=== PATIENT | male | born 1945 | race Caucasian/White ===

== ENCOUNTER 2017-01-08 08:57 | Inpatient (IN) | payer MEDICARE ==
[~2017-01-08] VITALS: Ht 167.6 cm; Wt 94.2 kg
[2017-01-08] MEDS ORDERED: IPRAAER INH (14:19)
[2017-01-08] MEDS ORDERED: ALPR1TAB3 PO (14:19)
[2017-01-08] MEDS ORDERED: LATA0.002 EACH EYE (14:19)
[2017-01-08] MEDS ORDERED: ACYC400T PO (14:19)
[2017-01-08] MEDS ORDERED: HYDR1OIN25 TOPICAL (14:19)
[2017-01-08] MEDS ORDERED: OPTI0.5D EACH EYE (14:19)
[2017-01-08] MEDS ORDERED: MELO-1 PO (14:19)
[2017-01-08] MEDS ORDERED: LISI40TA PO (14:19)
[2017-01-08] MEDS ORDERED: HYDR1OIN25 (14:19)
[2017-01-08] MEDS ORDERED: PRAZ5CAP PO (14:19)
[2017-01-08] MEDS ORDERED: IPRASOL INH (14:19)
[2017-01-08] MEDS ORDERED: HYDR12.57 PO (14:19)
[2017-01-08] MEDS ORDERED: SYMB80AE INH (14:19)
[2017-01-08] MEDS ORDERED: OXYC1CAP PO (14:19)
[2017-01-08] MEDS ORDERED: SPIRCAP INH (14:19)
[2017-01-18 07:48] VITALS: BP 161/71; PULSE 92; RESP 18; TEMP 99.5; O2SAT 94
[2017-01-18] MEDS ORDERED: LACTATED RINGER'S 1000 ML IV PRN (08:00)
[2017-01-18] MEDS ORDERED: POVIDONE IODINE 5% (ANTISEPSIS KIT) 4 APPLICATIONS EACH NARE PRN (08:00)
[2017-01-18] MEDS ORDERED: CHLORHEXIDINE GLUCONATE 4% SOLN 120 ML BTL TOPICAL SCH (08:00)
[2017-01-18] MEDS ORDERED: SODIUM CHLORID 0.9% 500 ML IV PRN (08:00)
[2017-01-18] MEDS ORDERED: CHLORHEXIDINE GLUCONATE 2 % 1 PACK (2 CLOTHS) TOPICAL PRN (08:00)
[2017-01-18] MEDS ORDERED: ceFAZolin 2 GM PREMIX 50 ML IV SCH (08:00)
[2017-01-18] MEDS ORDERED: INSULIN HUMAN REGULAR 1,000 UNITS/10 ML VIAL SQ PRN (08:00)
[2017-01-18] MEDS ORDERED: METOPROLOL TARTRATE 25 MG TAB PO PRN (08:00)
[2017-01-18] MEDS ORDERED: MAGNESIUM HYDROXIDE SUSP 30 ML CUP PO PRN (08:45)
[2017-01-18] MEDS ORDERED: ACETAMINOPHEN/HYDROcodone 325 MG/7.5 MG TAB PO PRN (08:45)
[2017-01-18] MEDS ORDERED: SODIUM CHLORIDE 0.9% FLUSH 5 ML FLUSH IVF PRN (08:45)
[2017-01-18] MEDS ORDERED: ONDANSETRON HCL 4 MG/2 ML VIAL IVP PRN (08:45)
[2017-01-18] MEDS ORDERED: Post-op Orders (for Pharmacy) MISC XX ONE (08:45)
[2017-01-18] MEDS ORDERED: BISACODYL 10 MG SUPP RECTAL PRN (08:45)
[2017-01-18] MEDS ORDERED: MORPHINE SULFATE 8 MG/ML INJ IV PUSH PRN (08:45)
[2017-01-18] MEDS ORDERED: TRANEXAMIC ACID INJ 0 MG in SODIUM CHLORIDE 0.9% INJ 100 ML IV SCH (08:45)
[2017-01-18] MEDS ORDERED: NON-FORMULARY DRUG (Ipratropium-Albuterol Inh (Combivent Respimat Inh) 1 PUFF) INH PRN (09:00)
[2017-01-18] MEDS ORDERED: GENTAMICIN SULFATE 80 MG/2 ML VIAL IRRIGATION ONE (09:50)
[2017-01-18] MEDS ORDERED: TRANEXAMIC ACID IV SCH ×2 (10:00→13:00)
[2017-01-18] MEDS ORDERED: EXPAREL PERI-ARTICULAR INJECTION (TOTAL VOL. 60 ML) P-ARTICULR SCH ×2 (10:00)
[2017-01-18] MEDS ORDERED: KETOROLAC TROMETHAMINE 30 MG/ML (IVP) VIAL IVP SCH (10:00)
[2017-01-18] MEDS ORDERED: SODIUM CHLORIDE 0.9% IV SCH ×2 (10:00→13:00)
[2017-01-18] MEDS ORDERED: CARBOXYMETHYLCELLULOSE EACH EYE PRN (11:00)
[2017-01-18] MEDS ORDERED: [UNRECOGNIZED DRUG - OTHER] EACH EYE PRN (11:00)
[2017-01-18] MEDS ORDERED: DO NOT ADM ANY ANTICOAGULANT DRUGS PRN (12:01)
[2017-01-18] MEDS ORDERED: *morphine SULFATE 8 MG/ML PERIprocedure ONLY ONE ×3 (12:23→12:38)
[2017-01-18] MEDS ORDERED: *RESP: ALBUTEROL 2.5 MG/3 ML NEB (PRN) PERIprocedural Use ONLY NEB ONE (12:24)
[2017-01-18] MEDS ORDERED: *MEPERIDINE 25 MG INJ VIAL PERIprocedural Use ONLY ONE (12:42)
[2017-01-18] MEDS ORDERED: *HYDROmorphone PF 1 MG VIAL PERIprocedural Use ONLY ONE ×2 (12:55→13:31)
[2017-01-18] MEDS: KETOROLAC TROMETHAMINE 30 MG/ML (IVP) VIAL IVP SCH ×2 (13:00→19:13)
[2017-01-18] MEDS: ALPRAZolam 1 MG TAB PO PRN (13:23)
--- NOTE | 2017-01-18 13:24 | RADRPT ---
EXAM DATE/TIME: 01/18/2017 12:35 [place] COMPARISON: No previous studies available for comparison. INDICATIONS : Post op right hip. MEDICAL HISTORY : None. SURGICAL HISTORY : None. ENCOUNTER: Initial ACUITY: 1 day PAIN SCORE: 10/10 LOCATION: Right hip. FINDINGS: A two view examination of the right hip was performed. Right hip arthroplasty. Postsurgical changes. No hardware loosening or fracture. A linear 2.6 cm radiopaque density in the soft tissues of the uppe r thigh of uncertain etiology. The acetabulum is grossly intact. CONCLUSION: 1. Right hip prosthesis. 2. Linear 2.6 cm radiopaque density in the upper soft tissues of the upper thigh of uncertain etiolog y. Constantino Paredes MD on January 18, 2017 at 13:20 Board Certified Radiologist. This report was verified electronically.
[2017-01-18] MEDS ORDERED: ALPRAZolam 0.5 MG TAB ONE (13:26)
[2017-01-18] MEDS ORDERED: PROPOFOL 200 MG/20 ML AMP IV ONE (15:17)
[2017-01-18] MEDS ORDERED: PHENYLEPH/NS 1000 MCG/10 ML SYR IV ONE (15:17)
[2017-01-18] MEDS ORDERED: LACTATED RINGER'S 1000 ML INJ 2,000 ML IV ONE (15:18)
[2017-01-18 15:20] VITALS: BP 131/71; PULSE 85; RESP 17; TEMP 98.4; O2SAT 93
--- NOTE | 2017-01-18 15:52 | PD.CONS ---
[facility] Service [place] [facility] Consult Requested By Dr. Davis Reason for Consult Medical management Primary Care Physician Oswaldo Garcia MD Diagnoses: (1) Osteonecrosis of right hip (2) Hypertension (3) COPD (chronic obstructive pulmonary disease) History of Present Illness The patient is a 71-year-old male seen in consultation for medical management following right total hip arthroplasty. He has history of COPD and hypertension. He is having pain in the right hip currently. Denies dyspnea, chest pain. Review of Systems Constitutional: DENIES: Fever, Chills, Night Sweats Eyes: DENIES: Blurred vision, Vision loss Ears, nose, mouth, throat: DENIES: Hearing loss Respiratory: DENIES: Cough, Wheezing, Sputum production, Shortness of breath Cardiovascular: DENIES: Chest pain, Palpitations, Dyspnea on Exertion, Lower Extremity Edema Gastrointestinal: DENIES: Abdominal pain, Constipation, Diarrhea, Nausea, Vomiting Genitourinary: DENIES: Urinary frequency, Urinary incontinence, Urgency, Hematuria, Dysuria, Nocturia Musculoskeletal: COMPLAINS OF: Joint pain, DENIES: Muscle aches Integumentary: DENIES: Pruritus, Rash Hematologic/lymphatic: DENIES: Bruising Neurologic: DENIES: Headache Past Family Social History Allergies: Coded Allergies: Codeine (Verified Allergy, Intermediate, ITCHING, 01/08/17) Past Medical History COPD Hypertension Osteoarthritis History of prostate cancer Past Surgical History Prostatectomy 2001 Reported Medications Alprazolam 1 mg 3 times a day as needed Amlodipine 10 mg daily Prazosin 2.5 mg daily at bedtime DuoNeb 3-4 times daily Latanoprost eyedrops Lisinopril 40 mg daily Symbicort 80/4.5 Meloxicam 15 mg daily Oxycodone 5 mg every 4 hours as needed Acyclovir 400 mg twice a day Combivent inhaler 4 times a day as needed Family History Father had lung cancer Diabetes Hypertension Mother had heart disease Sibling with non-Hodgkin's lymphoma Social History Patient smoked for a few years when he joined the . Quit many years ago. Denies alcohol use. No illicit drug use. Physical Exam Vital Signs Vital Signs Date Time Temp Pulse Resp B/P Pulse Ox O2 Delivery O2 Flow Rate FiO2 01/18/17 07:48 99.5 92 18 161/71 94 Physical Exam GENERAL: Well-nourished, well-developed male in no acute distress. Appears somewhat uncomfortable at times. HEENT: Normocephalic, atraumatic. Pupils equal, round and reactive. Extraocular movements intact. No scleral icterus. No injection or drainage. Oropharynx is clear. Mucous membranes are moist. CARDIOVASCULAR: Regular rate and rhythm without murmurs, gallops, or rubs. RESPIRATORY: Clear to auscultation. No wheezes, rales, or rhonchi. Breathing is non-labored. GASTROINTESTINAL: Abdomen soft, non-tender, nondistended. EXTREMITIES: No lower extremity edema. No calf tenderness. Right leg in an immobilizer splint. SCDs. PSYCH: Alert and oriented x 3. Laboratory Laboratory Tests Test 01/18/17 07:44 Blood Type O POSITIVE Antibody Screen NEGATIVE Blood Bank Comment Imaging Last Impressions Hip X-Ray 01/18/17 0000 Signed Impressions: Service Date/Time: Wednesday, January 18, 2017 12:35 - CONCLUSION: 1. Right hip prosthesis. 2. Linear 2.6 cm radiopaque density in the upper soft tissues of the upper thigh of uncertain etiology. Constantino Paredes MD Assessment and Plan Assessment and Plan 1. Osteoarthritis, right hip: Status post right total hip arthroplasty, POD #0. Management per orthopedic surgery. Continue pain control, bowel regimen, PT. 2. Hypertension: Continue HCTZ, lisinopril, prazosin. 3. COPD: Not in exacerbation. Continue Symbicort, Spiriva. DuoNeb scheduled. Albuterol nebulizers as needed. Supplemental oxygen. 4. DVT prophylaxis: Aspirin. Umer Rodriguez MD January 18, 2017 15:52
[2017-01-18] MEDS ORDERED: LORazepam 1 MG TAB PO PRN (16:30)
[2017-01-18] MEDS ORDERED: LORazepam 2 MG/ML VIAL IV PUSH PRN ×4 (16:30)
[2017-01-18] MEDS ORDERED: LORazepam 2 MG TAB PO PRN (16:30)
[2017-01-18] MEDS ORDERED: FLUMAZENIL 0.5 MG/5 ML VIAL IV PUSH PRN (16:30)
[2017-01-18] MEDS: ACETAMINOPHEN/HYDROcodone 325 MG/7.5 MG TAB PO PRN ×2 (17:55→22:09)
[2017-01-18] MEDS: RESP: ALBUTEROL 2.5 MG/3 ML NEB (PRN) INH (18:28)
[2017-01-18 18:29] VITALS: O2SAT 94
[2017-01-18 20:30] VITALS: BP 136/73; PULSE 96; RESP 18; TEMP 99.4; O2SAT 98
[2017-01-18] MEDS: SODIUM CHLORIDE 0.9% FLUSH 5 ML FLUSH IVF SCH (20:56)
[2017-01-18] MEDS: BUDESONIDE-FORMOTEROL 80/4.5 MCG INHALER INH SCH (20:57)
[2017-01-18] MEDS: LATANOPROST 0.005% OPHT SOLN 2.5 ML BTL EACH EYE SCH (20:57)
[2017-01-18] MEDS: ACYCLOVIR 200 MG CAP PO SCH (20:58)
[2017-01-18] MEDS ORDERED: PRAZOSIN HCL 5 MG CAP PO SCH (21:00)
[2017-01-18] MEDS ORDERED: ZOLPIDEM TARTRATE 5 MG TAB PO PRN (21:00)
[2017-01-18] MEDS: HYDROCORTISONE 1% OINT 30 GM TUBE TOPICAL SCH (21:01)
[2017-01-18] MEDS: LACTATED RINGER'S 1000 ML INJ 1,000 ML IV SCH (21:13)
[2017-01-19] VITALS (9 sets, daily range): BP systolic 122–142; BP diastolic 58–74; PULSE 81–97; RESP 17–19; TEMP 97.8–99.9; O2SAT 91–100
[2017-01-19] MEDS: KETOROLAC TROMETHAMINE 30 MG/ML (IVP) VIAL IVP SCH ×4 (00:24→18:33)
[2017-01-19] MEDS ORDERED: oxyCODONE/ACETAMINOPHEN 5 MG/325 MG TAB PO PRN (01:15)
[2017-01-19] MEDS: oxyCODONE/ACETAMINOPHEN 5 MG/325 MG TAB PO PRN ×5 (02:00→19:44)
[2017-01-19] MEDS: RESP: ALBUTEROL 2.5 MG/3 ML NEB (PRN) INH (06:12)
--- NOTE | 2017-01-19 06:43 | PD.ORT.PN ---
Subjective Post Op Day #: 1 Subjective Remarks He has had some pain when moved. He does not like the CKS. Distance Walked 2 feet. Objective Vitals Vital Signs Date Time Temp Pulse Resp B/P Pulse Ox O2 Delivery O2 Flow Rate FiO2 01/19/17 06:09 95 Nasal Cannula 3.00 01/19/17 04:43 97.8 83 17 125/69 99 01/19/17 00:35 99.9 89 18 122/58 100 01/18/17 20:30 99.4 96 18 136/73 98 01/18/17 18:29 94 Nasal Cannula 3.00 01/18/17 15:20 98.4 85 17 131/71 93 01/18/17 15:00 98.0 85 20 119/56 97 Nasal Cannula 2 01/18/17 14:30 84 20 112/54 98 Nasal Cannula 2 01/18/17 14:15 83 20 107/57 97 Nasal Cannula 2 01/18/17 14:00 81 20 151/69 99 Nasal Cannula 2 01/18/17 13:45 81 20 151/69 99 Nasal Cannula 2 01/18/17 13:30 80 20 155/68 99 Nasal Cannula 2 01/18/17 13:15 79 20 146/67 99 Nasal Cannula 2 01/18/17 13:00 79 20 157/67 99 Nasal Cannula 2 01/18/17 12:45 77 20 141/79 100 Nasal Cannula 2 01/18/17 12:30 76 24 129/81 100 Nasal Cannula 2 01/18/17 12:15 76 24 125/82 100 Nasal Cannula 2 01/18/17 12:01 97.3 69 24 117/81 99 Nasal Cannula 2 01/18/17 07:48 99.5 92 18 161/71 94 I/O 01/18/17 01/18/17 01/18/17 01/19/17 01/19/17 01/19/17 06:59 14:59 22:59 06:59 14:59 22:59 Intake Total 2300 ml 1814 ml Output Total 1400 ml 350 ml Balance 900 ml 1464 ml Intake Oral 720 ml IV Total 1094 ml Other 2300 ml Output Urine Total 1100 ml 350 ml Estimated Blood Loss 300 ml # Bowel Movements 0 Imaging Last 72 hours Impressions Hip X-Ray 01/18/17 0000 Signed Impressions: Service Date/Time: Wednesday, January 18, 2017 12:35 - CONCLUSION: 1. Right hip prosthesis. 2. Linear 2.6 cm radiopaque density in the upper soft tissues of the upper thigh of uncertain etiology. Constantino Paredes MD Objective Remarks He is resting comfortably, supine in bed . The neurovascular status is intact. The dressing is dry and intact. Assessment & Plan Ortho Post Op Day #: 1 Problem List: (1) Status post total hip replacement, right Plan: Continue postop care and PT. Assessment and Plan Condition: Good. Orthopaedically stable. DVT prophylaxis: TEDs, sequentials, ASA. Discharge plans: Home with [facility]. Has appointment. Mckenzie Davis MD (Charles) January 19, 2017 06:43
--- NOTE | 2017-01-19 06:59 | HHI.FF ---
Face to Face Verification Diagnosis: (1) Status post total hip replacement, right Physical Therapy Gait training Hip: Total hip, Protocol: Right, Posterior hip precautions, Progress to weight bearing Canvas Knee Splint: When in bed & 2 pillows btw thighs Right LE Weight Bearing: WB as tolerated Right LE Range of Motion: Active ROM Nursing Nursing: Dressing changes Dressing Changes: Daily dressing change, Coverderm/Primapore Additional Instructions Remove steristrips on postop day 14. I have seen patient Dg Bradley on 01/19/17. My clinical findings support the need for the requested home health care services because: Ltd mobility - disease progression Patient has SOB Limited ability to care for self High risk of falls I certify that my clinical findings support that this patient is homebound because: Post-op weakness Hx COPD- exertion dyspnea/weakness Unsteady gait/balance Unsafe to leave home unassisted Mckenzie Davis MD (Charles) January 19, 2017 06:59
[2017-01-19 07:19] LABS: HEMATOCRIT 33.9 % (39.0-51.0); REVIEW FLAG FINAL
[2017-01-19] MEDS: SODIUM CHLORIDE 0.9% FLUSH 5 ML FLUSH IVF SCH ×2 (09:00→19:43)
[2017-01-19] MEDS: LACTATED RINGER'S 1000 ML INJ 1,000 ML IV SCH ×2 (09:43→19:37)
[2017-01-19] MEDS: HYDROCHLOROTHIAZIDE 12.5 MG CAP PO SCH (10:07)
[2017-01-19] MEDS: BUDESONIDE-FORMOTEROL 80/4.5 MCG INHALER INH SCH ×2 (10:07→19:43)
[2017-01-19] MEDS: LISINOPRIL 20 MG TAB PO SCH (10:07)
[2017-01-19] MEDS: HYDROCORTISONE 1% OINT 30 GM TUBE TOPICAL SCH ×2 (10:08→19:44)
[2017-01-19] MEDS: ACYCLOVIR 200 MG CAP PO SCH ×2 (10:08→19:43)
[2017-01-19] MEDS: ASPIRIN EC 81 MG TABEC PO SCH ×2 (11:25→19:43)
[2017-01-19] MEDS: RESP: ALBUTEROL 2.5 MG/IPRATROPIUM 0.5 MG NEB (SCH) INH ×3 (13:33→19:45)
--- NOTE | 2017-01-19 13:53 | HHI.PR ---
Subjective Remarks Follow-up hypertension, COPD. Patient states that he feels much better today. He is still having pain in the right hip area. Denies chest pain or dyspnea. Objective Vitals Vital Signs Date Time Temp Pulse Resp B/P Pulse Ox O2 Delivery O2 Flow Rate FiO2 01/19/17 13:34 95 Nasal Cannula 3.00 01/19/17 08:00 98.4 93 18 122/67 97 01/19/17 06:09 95 Nasal Cannula 3.00 01/19/17 04:43 97.8 83 17 125/69 99 01/19/17 00:35 99.9 89 18 122/58 100 01/18/17 20:30 99.4 96 18 136/73 98 01/18/17 18:29 94 Nasal Cannula 3.00 01/18/17 15:20 98.4 85 17 131/71 93 01/18/17 15:00 98.0 85 20 119/56 97 Nasal Cannula 2 01/18/17 14:30 84 20 112/54 98 Nasal Cannula 2 01/18/17 14:15 83 20 107/57 97 Nasal Cannula 2 01/18/17 14:00 81 20 151/69 99 Nasal Cannula 2 I/O 01/18/17 01/18/17 01/18/17 01/19/17 01/19/17 01/19/17 07:00 15:00 23:00 07:00 15:00 23:00 Intake Total 3305 ml 809 ml 716 ml Output Total 1400 ml 350 ml 550 ml Balance 1905 ml 459 ml 166 ml Intake Oral 480 ml 240 ml 240 ml IV Total 525 ml 569 ml 476 ml Other 2300 ml Output Urine Total 1100 ml 350 ml 550 ml Estimated Blood Loss 300 ml # Bowel Movements 0 0 Result Diagram: 01/19/17 0654 Imaging Last Impressions Hip X-Ray 01/18/17 0000 Signed Impressions: Service Date/Time: Wednesday, January 18, 2017 12:35 - CONCLUSION: 1. Right hip prosthesis. 2. Linear 2.6 cm radiopaque density in the upper soft tissues of the upper thigh of uncertain etiology. Constantino Paredes MD Objective Remarks General: Elderly male in no acute distress. Heart: Regular rate and rhythm. No murmur. Lungs: Clear to auscultation bilaterally. No wheezes, rales, or rhonchi. Breathing is nonlabored. Abdomen: Soft, nontender, nondistended. Extremities: No lower extremity edema. Psych: Alert and oriented. Urinary Catheter: No Vascular Central Line Catheter: No A/P Problem List: (1) Osteonecrosis of right hip ICD Code: M87.9 Status: Acute (2) Hypertension ICD Code: I10 Status: Acute (3) COPD (chronic obstructive pulmonary disease) ICD Code: J44.9 Status: Acute Assessment and Plan 1. Osteoarthritis, right hip: Status post right total hip arthroplasty, POD #1. Management per orthopedic surgery. Continue pain control, bowel regimen, PT. 2. Hypertension: Continue HCTZ, lisinopril, prazosin. Blood pressure is well controlled. 3. COPD: Not in exacerbation. Continue Symbicort, Spiriva. DuoNeb scheduled. Albuterol nebulizers as needed. Supplemental oxygen. 4. DVT prophylaxis: Aspirin. Discharge Planning Current plan is for discharge home tomorrow with home health care. Patient may need SNF for rehabilitation depending on clinical improvement. Umer Rodriguez MD January 19, 2017 13:53
[2017-01-19] MEDS: ALPRAZolam 1 MG TAB PO PRN (15:09)
[2017-01-19] MEDS: DOCUSATE SODIUM 100 MG CAP PO SCH (19:43)
[2017-01-19] MEDS: LATANOPROST 0.005% OPHT SOLN 2.5 ML BTL EACH EYE SCH (19:44)
[2017-01-20] VITALS: BP 153/69; PULSE 98; RESP 19; TEMP 98.6; O2SAT 99
[2017-01-20] MEDS: oxyCODONE/ACETAMINOPHEN 5 MG/325 MG TAB PO PRN ×4 (00:05→13:14)
[2017-01-20] MEDS: KETOROLAC TROMETHAMINE 30 MG/ML (IVP) VIAL IVP SCH ×2 (00:05→03:19)
[2017-01-20 04:40] VITALS: BP 155/60; PULSE 104; RESP 19; TEMP 100.9; O2SAT 97
[2017-01-20 06:29] LABS: HEMATOCRIT 33.1 % (39.0-51.0); REVIEW FLAG FINAL
--- NOTE | 2017-01-20 06:45 | PD.ORT.PN ---
Subjective Post Op Day #: 2 Subjective Remarks He has very little pain. He has been OOB to the bathroom. He did well with PT and the class. Distance Walked 110 feet. Objective Vitals Vital Signs Date Time Temp Pulse Resp B/P Pulse Ox O2 Delivery O2 Flow Rate FiO2 01/20/17 04:40 100.9 104 19 155/60 97 01/20/17 00:00 98.6 98 19 153/69 99 01/19/17 20:30 97.9 97 19 134/64 94 01/19/17 19:47 91 Nasal Cannula 21 01/19/17 16:00 98.5 89 18 131/68 97 01/19/17 13:34 95 Nasal Cannula 3.00 01/19/17 12:00 98.4 81 18 142/74 99 I/O 01/19/17 01/19/17 01/19/17 01/20/17 01/20/17 01/20/17 07:00 15:00 23:00 07:00 15:00 23:00 Intake Total 716 ml 840 ml 240 ml Output Total 550 ml Balance 166 ml 840 ml 240 ml Intake Oral 240 ml 840 ml 240 ml IV Total 476 ml Output Urine Total 550 ml # Voids 6 2 # Bowel Movements 0 0 0 Result Diagram: 01/20/17 0622 Imaging Last 72 hours Impressions Hip X-Ray 01/18/17 0000 Signed Impressions: Service Date/Time: Wednesday, January 18, 2017 12:35 - CONCLUSION: 1. Right hip prosthesis. 2. Linear 2.6 cm radiopaque density in the upper soft tissues of the upper thigh of uncertain etiology. Constantino Paredes MD Objective Remarks He is resting comfortably, supine in bed . The neurovascular status is intact. The dressing is dry and intact. Assessment & Plan Ortho Post Op Day #: 2 Problem List: (1) Status post total hip replacement, right Plan: Continue postop care and PT. Assessment and Plan Condition: Good. Orthopaedically stable. DVT prophylaxis: TEDs, sequentials, ASA. Discharge plans: Home with [facility]. Has appointment. Rx: Percocet 5/325 Mckenzie Davis MD (Charles) January 20, 2017 06:45
--- NOTE | 2017-01-20 07:36 | MP ---
cc: Mckenzie VALE. DATE OF SURGERY 01/18/2017 PREOPERATIVE DIAGNOSIS Osteonecrosis right femoral head. POSTOPERATIVE DIAGNOSIS Osteonecrosis right femoral head. OPERATION PERFORMED Right total hip arthroplasty with Endy prosthesis. SURGEON Mckenzie Vale MD CHECK EMBOSSER Shahzad Black CSFA ANESTHESIA Spinal with supplemental local INDICATIONS AND FINDINGS This 71-year-old man has a three month history of spontaneous onset of right hip pain which has progressively worsened to the point that he can only walk short distances because of the pain. He has not responded to conservative measures including anti-inflammatory agents, analgesics, ambulatory aids, exercises and the like. Physical findings showed marked pain on motion, extremely antalgic gait, and tenderness about the hip. Imaging studies show on the x-ray some irregularity with a small step offs as seen on the lateral view. There did appear to be a small cystic area in the humeral head. The trabecular pattern in the femoral head was mottled. An MRI shows significant osteonecrosis with obvious fluid within an area in the subchondral portion of the femoral head. OPERATIVE FINDINGS Showed significant osteonecrosis of the femoral head with a split going from the fovea down to the edge of the articular surface with delamination going across the upper portion and going towards posterior. This would actually opened as the flap similar to the cover of a book. The entire femoral head was soft. The prosthesis used was a [place] prosthesis with the acetabular component being a Tritanium cluster shell size 52 mm with a Trident X3 polyethylene insert 0 degrees with 32 mm inner diameter. Three screws were used. The femoral component was an Accolade II size 5 x 132 degrees neck angle. The femoral head was a Biolox Delta head size 32 mm outer diameter with a -4 mm neck length. PROCEDURE The patient was brought to the operating room and a spinal anesthetic was administered. The procedure was carried out in the clean-air operating suite. He received prophylactic antibiotics in the form of Ancef 2 grams and also received tranexamic acid preoperatively according to the protocol. After his spinal anesthetic, he was placed in the lateral position on the [employer] lateral positioner with the right hip up and an axillary roll under the left shoulder. The hip was prepped with alcohol, Hibiclens and Chloraprep and draped in the usual manner with the hip draped free. An appropriate time-out procedure was carried out. Local anesthesia was administered in the incision site and posterior lateral aspect of the hip. The incision was approximately 15 cm in length centered over the posterior superior aspect of the greater trochanter. The incision was deepened through the subcutaneous tissues to the fascia dorota and gluteus fascia which were incised in line with their fibers in the skin incision. A Charnley retractor was placed with wound towels. The sciatic nerve was identified and protected throughout the procedure. The hip was internally rotated. The external rotators were released off the posterior aspect of the greater trochanter. A posterior capsulotomy was carried out with a posteriorly based flap. The hip was dislocated. The findings were identified as noted above. The femoral neck was transected at the appropriate level using the guide and the oscillating saw. The femoral head was removed. Femoral preparation started with a box osteotome followed by a curette and canal finding awl. Broaching was started at size zero and went in one size increments up to size five. The calcar planer was used to smooth the calcar and trimmed to the appropriate level. The hip was repositioned. Retractors were placed about the acetabulum. Reaming was then carried out starting at size 43, going in 2-mm increments to 49 and 1 mm increments to 50 and then up to 52. At 51 mm, a trial reduction was carried out, but this would not seat. At 52 mm, a trial reduction was carried out and it did seat well. This was then removed. Between 51 and 52 a small chip of one of the retractors came off on the reamer. This was not identified within the hip joint. This was carefully palpated throughout the area and was not identified. Irrigation was carried out and this could have disappeared. The reaming was completed as noted above. The acetabular component was impacted into place and seated appropriately. This was done using anatomic landmarks including the contour of the acetabulum and the inferior ligament, as well as the alignment guide. When this was seated, the terminal impaction was carried out followed by placement of three screws. The liner was inserted. The appearance was excellent. Attention was then directed to the back to the femur. A trial reduction was carried out with the templated size 127 mm neck and a -4 mm neck length. This was very tight and was long. Repeat broaching was carried out on two occasions to get this down to an appropriate level. At that level, a 132 degrees neck was chosen and appeared to be more appropriate than the 127 degree. The stability was excellent. There was no pistoning. The motion was excellent. The leg lengths appeared appropriate. The femoral broach and trial were removed. The Accolade II 132 degree neck angle hip stem size [address] and seated appropriately after irrigating the femoral neck. This was palpated with a curette and found to be appropriate. With the prosthesis impacted into place and seated, the head trial was positioned in place. A reduction was carried out again with a -4 mm 32 mm outer diameter head. Stability was excellent. The mobility was excellent. The leg lengths were appropriate. There was no pistoning. The Biolox Delta head was placed onto the cleaned and dried femoral trunnion. This was impacted into place. The hip was reduced. The stability and mobility were as noted above. Local anesthesia was administered throughout the hip with Exparel. The capsule and external rotators were reattached to the posterior aspect of the greater trochanter through drill holes using #1 Vicryl interrupted sutures using a Krackow technique for the capsular structures and external rotators. The sciatic nerve was inspected and found to be intact. The fascia dorota and gluteus fascia were repaired with #1 Vicryl interrupted [id number] sutures. Subcutaneous tissues were closed with 2-0 Vicryl interrupted simple sutures with buried knots. The skin was closed with a continuous subcuticular closure of 4-0 Monocryl. The wound was dressed with Steri-Strips followed by a dry dressing, ABD pad and Medipore compression hip dressing. The patient was transferred from the operating room to the recovery room in satisfactory condition having tolerated the procedure well. Counts were correct. Specimens none. Estimated blood loss 350 mL. MD RIA Santana/GLENROY /11:55 AM /7:13 AM
[2017-01-20] MEDS: BUDESONIDE-FORMOTEROL 80/4.5 MCG INHALER INH SCH (07:46)
[2017-01-20] MEDS: DOCUSATE SODIUM 100 MG CAP PO SCH (07:47)
[2017-01-20] MEDS: LISINOPRIL 20 MG TAB PO SCH (07:47)
[2017-01-20] MEDS: HYDROCHLOROTHIAZIDE 12.5 MG CAP PO SCH (07:47)
[2017-01-20] MEDS: ACYCLOVIR 200 MG CAP PO SCH (07:47)
[2017-01-20] MEDS: HYDROCORTISONE 1% OINT 30 GM TUBE TOPICAL SCH (07:48)
[2017-01-20] MEDS: ASPIRIN EC 81 MG TABEC PO SCH (07:48)
[2017-01-20] MEDS: SODIUM CHLORIDE 0.9% FLUSH 5 ML FLUSH IVF SCH (07:50)
[2017-01-20] MEDS: RESP: ALBUTEROL 2.5 MG/IPRATROPIUM 0.5 MG NEB (SCH) INH ×2 (08:00→12:00)
[2017-01-20 08:02] VITALS: BP 125/63; PULSE 92; RESP 16; TEMP 100; O2SAT 97
[2017-01-20] MEDS ORDERED: ASPI81TA11 PO (08:30)
[2017-01-20] MEDS ORDERED: OXYC1TAB63 PO (08:30)
[2017-01-20] MEDS ORDERED: TIOTROPIUM BROMIDE 18 MCG INH INH SCH (09:00)
[2017-01-20] MEDS: LACTATED RINGER'S 1000 ML INJ 1,000 ML IV SCH (10:43)
[2017-01-20 12:22] VITALS: BP 122/70; PULSE 90; RESP 16; TEMP 97.3; O2SAT 98
== END 2017-01-20 13:21 | disposition home health service (06) | DRG 470 ==
LOC: HSDI 01-18 07:15 → N06A 01-18 15:17
PROVIDERS: ADMIT Orthopaedic Surgery; ATTEND Orthopaedic Surgery
PROC: 0SR903A Replacement of Right Hip Joint with Ceramic Synthetic Substitute, Uncemented, Open Approach (ICD-10-PCS; principal; 2017-01-18 08:39)
DX: M87.9 Osteonecrosis, unspecified (principal); J44.9 Chronic obstructive pulmonary disease, unspecified; I10 Essential (primary) hypertension; M16.11 Unilateral primary osteoarthritis, right hip; Z87.891 Personal history of nicotine dependence; Z85.46 Personal history of malignant neoplasm of prostate; Z80.1 Family history of malignant neoplasm of trachea, bronchus and lung; Z80.7 Family history of other malignant neoplasms of lymphoid, hematopoietic and related tissues; Z83.3 Family history of diabetes mellitus; Z82.49 Family history of ischemic heart disease and other diseases of the circulatory system
CPT/HCPCS: 73502; 85014; 85018; 86850; 86900; 86901; 94150; 94640; 94664; C1776; C9290; J0690; J1170; J1580; J1885; J2175; J2270; J2370; J7120; J7613; L1830

== ENCOUNTER → 2017-01-08 | Outpatient (CLI) | payer MEDICARE ==
[~2017-01-08] MED LIST: ACYC400T PO; ALBU8I INH; ALPR1TAB3 PO; AMLO10 PO; ASPI81TA11 PO; FOSI20 PO; HYDR12.57 PO; HYDR1OIN25; HYDR1OIN25 TOPICAL; IPRAAER INH; IPRASOL INH; LATA0.002 EACH EYE; LEVA500T33 PO; LISI40TA PO; LORT5TAB PO; MELO-1 PO; OPTI0.5D EACH EYE; OXYC1CAP PO; OXYC1TAB63 PO; PRAZ5CAP PO; PRED50TA PO; SPIRCAP INH; SULF1TAB47 PO; SYMB80AE INH
[2017-01-08 10:09] LABS: HEMATOCRIT 42.9 % (39.0-51.0); MEAN CELL VOLUME 93.3 FL (80.0-100.0); MEAN CORPUSCULAR HEMOGLOBIN 32.7 PG (27.0-34.0); MEAN CORPUSCULAR HGB CONC 35.1 % (32.0-36.0); PLATELET COUNT 220 TH/MM3 (150-450); RED CELL DISTRIBUTION WIDTH 12.7 % (11.6-17.2); REVIEW FLAG FINAL; WHITE BLOOD COUNT 6.8 TH/MM3 (4.0-11.0)
[2017-01-08 10:13] LABS: BLOOD, URINE NEG (NEG); COMMENT (UR) CULT NOT INDICATED; CULTURE IF INDICATED CULT NOT INDICATED; GLUCOSE,URINE NEG (NEG); HYALINE CAST, URINE 8 /lpf (RARE); KETONE, URINE NEG (NEG); MUCUS URINE FEW /lpf (OCC); NITRITE,URINE NEG (NEG); URINE COLOR YELLOW (YELLW/STRAW)
[2017-01-08 10:18] LABS: APTT (PATIENT) 26.3 SEC (24.3-30.1); PROTHROMBIN TIME - PATIENT 10.7 SEC (9.8-11.6)
[2017-01-08 10:45] LABS: BICARBONATE 29.1 MEQ/L (21.0-32.0); POTASSIUM 3.4 MEQ/L (3.5-5.1)
== END ==
LOC: CPRE 08:53
PROVIDERS: ATTEND Orthopaedic Surgery
DX: Z01.810 Encounter for preprocedural cardiovascular examination (principal); Z01.812 Encounter for preprocedural laboratory examination; M87.051 Idiopathic aseptic necrosis of right femur; I10 Essential (primary) hypertension; M79.609 Pain in unspecified limb
CPT/HCPCS: 36415; 80048; 81001; 85027; 85610; 85730